=== PATIENT | female | born 1980 | race Caucasian/White ===

== ENCOUNTER → 2020-01-17 | Outpatient (CLI) | payer SELFPAY ==
--- NOTE | 2020-01-17 13:45 | NUR ---
Previous assessment of COVID19 as entered is incorrect. Pt's rapid test was actually NEGATIVE for BOTH IgM and IgG, so an overall negative test. Attempted to correct but unable; IT unavailable, nursing/hospitalists could not fix either. Will call IT on Sunday.
== END | disposition home or self-care (01) ==
LOC: LAB 09:26 → RESCLI 09:26 → LAB 10:00
DX: U07.1 COVID-19 (principal); R50.81 Fever presenting with conditions classified elsewhere